=== PATIENT | female | born 1990 | race Caucasian/White ===

== ENCOUNTER 2016-08-30 17:42 | Emergency (ER) | payer BC ==
[2016-08-30 18:53] VITALS: BP 131/73
--- NOTE | 2016-08-30 19:16 | UC ---
Respiratory Complaint HPI - HPI Summary HPI Summary: 25 yo female with cough x 10 days no f/c non productice no CP or SOB - History of Current Complaint Chief Complaint: UCGeneralIllness Stated Complaint: COUGH,SORE THROAT Time Seen by Provider: 08/30/16 19:07 Hx Obtained From: Patient Hx Last Menstrual Period: 08/04/16 Onset/Duration: Gradual Onset, Lasting Weeks Timing: Constant Severity Initially: Mild Severity Currently: Moderate Pain Intensity: 2 Pain Scale Used: 0-10 Numeric Character: Cough: Nonproductive Aggravating Factors: Deep Breaths Alleviating Factors: Nothing Associated Signs And Symptoms: Positive: Nasal Congestion - Allergies/Home Medications Allergies/Adverse Reactions: Allergies Allergy/AdvReac Type Severity Reaction Status Date / Time Sulfa Drugs Allergy Unknown See Comment Verified 08/30/16 18:53 PMH/Surg Hx/FS Hx/Imm Hx Previously Healthy: Yes Endocrine History Of: Denies: Diabetes Cardiovascular History Of: Reports: 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 URETER REPAIR, TONSILS AND ADENOIDS, ear tubes - Family History Known Family History: Positive: Hypertension - Social History Alcohol Use: Occasionally Substance Use Type: None Smoking Status (MU): Never Smoked Tobacco - Immunization History Most Recent Influenza Vaccination: Not the season Review of Systems Constitutional: Negative Skin: Negative Eyes: Negative ENT: Negative Respiratory: Cough Cardiovascular: Negative Gastrointestinal: Negative Genitourinary: Negative Motor: Negative Neurovascular: Negative Musculoskeletal: Negative Neurological: Negative Psychological: Negative All Other Systems Reviewed And Are Negative: Yes Physical Exam Triage Information Reviewed: Yes Appearance: Well-Appearing, No Pain Distress, Well-Nourished, Obese Vital Signs: Initial Vital Signs Temp 98.2 F 08/30/16 18:49 Pulse 96 08/30/16 18:49 Resp 16 08/30/16 18:49 BP 131/73 08/30/16 18:49 Pulse Ox 100 08/30/16 18:49 Vital Signs Reviewed: Yes Eyes: Positive: Conjunctiva Clear ENT: Positive: Hearing grossly normal, Pharynx normal, Nasal congestion, TMs normal. Negative: Nasal drainage, Tonsillar exudate, Trismus, Muffled/hoarse voice Dental: Negative: Dental Fracture @, Abscess @ Neck: Positive: Supple, Nontender Respiratory: Positive: Normal breath sounds, No respiratory distress, No accessory muscle use. Negative: Respiratory distress, Decreased breath sounds Cardiovascular: Positive: RRR, No Murmur. Negative: Tachycardia, Bradycardia Musculoskeletal: Positive: ROM Intact, No Edema Neurological: Positive: Alert Psychological Exam: Normal Skin Exam: Normal UC Diagnostic Evaluation - Laboratory O2 Sat by Pulse Oximetry: 100 - normal/not hypoxic Respiratory Course/Dx - Differential Dx/Diagnosis Provider Diagnoses: acute bronchitis Discharge - Discharge Plan Condition: Stable Disposition: HOME Prescriptions: Amoxicillin (*) 875 mg PO BID #20 tab Patient Education Materials: Acute Bronchitis (ED) Referrals: Ad Brown MD [Primary Care Provider] - 3 Days Additional Instructions: recheck in 3-6 days if not better recheck sooner for new or worsening symptoms
== END 2016-08-30 19:30 | disposition home or self-care (01) ==
LOC: UCCORT 17:42
DX: J20.9 Acute bronchitis, unspecified (principal); Z88.2 Allergy status to sulfonamides
CPT/HCPCS: 99212; G0463

== ENCOUNTER 2017-01-31 16:49 | Emergency (ER) | payer BC ==
[2017-01-31 17:09] VITALS: BP 144/84
--- NOTE | 2017-01-31 17:22 | UC ---
Lower Extremity/Ankle HPI - HPI Summary HPI Summary: The patient comes in today for: 1. Left foot pain: Onset: ONe month ago--on and off. It has gotten worse over the last week. Palliative/provocative: Walking and pressure on the dorsum of the foot makes it worse. Quality: Sharp Region: Dorsum of the left foot. Severity: Walkin/10. Rest: 4/10 Time: Constant. Associated symptoms: She walks a lot at work. Previous treatment: She took 400 mg at 3:30 PM today. Previous medical evaluation: None. * - History of Current Complaint Chief Complaint: UCLowerExtremity Stated Complaint: LFT FOOT PAIN-1 WEEK Time Seen by Provider: 01/31/17 17:17 Hx Obtained From: Patient Hx Last Menstrual Period: 01/09/17 - Allergies/Home Medications Allergies/Adverse Reactions: Allergies Allergy/AdvReac Type Severity Reaction Status Date / Time Sulfa Drugs Allergy Unknown See Comment Verified 01/31/17 17:10 Home Medications: Home Medications Control Pill 1 tab PO DAILY 01/31/17 [History Confirmed 01/31/17] PMH/Surg Hx/FS Hx/Imm Hx Previously Healthy: No - Family planning/BCP Cardiovascular History: Hypertension GI/ History: Gastroesophageal Reflux - Surgical History Surgical History: Yes Surgery Procedure, Year, and Place: CLEF PALLET REPAIR,. URETER REPAIR, TONSILS AND ADENOIDS, ear tubes - Family History Known Family History: Positive: Cardiac Disease, Hypertension, Diabetes - Social History Occupation: Employed Full-time Alcohol Use: Occasionally Substance Use Type: None Smoking Status (MU): Never Smoked Tobacco - Immunization History Most Recent Influenza Vaccination: Not the season Review of Systems Constitutional: Negative Skin: Negative Eyes: Negative ENT: Negative Respiratory: Negative Cardiovascular: Negative Gastrointestinal: Negative Genitourinary: Negative All Other Systems Reviewed And Are Negative: Yes Physical Exam Triage Information Reviewed: Yes Appearance: Well-Appearing, No Pain Distress, Well-Nourished Vital Signs: Initial Vital Signs Temp 98.5 F 01/31/17 17:04 Pulse 98 01/31/17 17:04 Resp 14 01/31/17 17:04 BP 144/84 01/31/17 17:04 Pulse Ox 99 01/31/17 17:04 Vital Signs Reviewed: Yes Eyes: Positive: Conjunctiva Clear. Negative: Discharge ENT: Positive: Hearing grossly normal. Negative: Pharyngeal erythema, Nasal congestion, Nasal drainage, TM bulging, TM dull, TM red, Tonsillar swelling, Tonsillar exudate Dental: Negative: Gross Decay/Caries @, Dental Fracture @ Neck: Positive: Supple, Nontender, No Lymphadenopathy, Nuchal Rigidity Respiratory: Positive: Chest non-tender, Lungs clear, No respiratory distress, No accessory muscle use. Negative: Crackles, Wheezing Cardiovascular: Positive: RRR, No Murmur Abdomen Description: Positive: Nontender, No Organomegaly, Soft. Negative: Distended, Guarding Musculoskeletal: Positive: Strength Intact, ROM Intact, Other: - Left foot: Tenderness to palpation of the dorsum. No edema or erythema. No tenderness to palpation of the sole/instep. Flexion of the toes elicit pain. Neurological: Positive: Alert, Muscle Tone Normal Psychological: Positive: Age Appropriate Behavior, Consolable Skin: Negative: rashes, breakdown Lower Extremity Course/Dx - Differential Dx/Diagnosis Differential Diagnosis/HQI/PQRI: Cellulitis, Contusion, Sprain, Strain Provider Diagnoses: tenosynovitis Discharge - Discharge Plan Condition: Stable Disposition: HOME Patient Education Materials: Tendinitis (ED) Referrals: Ad Brown MD [Primary Care Provider] - 1 Week (Please see your primary care provider in about one to two weeks to see how well you are doing. If you get worse, please be seen sooner.)
== END 2017-01-31 17:48 | disposition home or self-care (01) ==
LOC: UCCORT 16:49
DX: M65.9 Synovitis and tenosynovitis, unspecified (principal); M79.672 Pain in left foot; Z88.2 Allergy status to sulfonamides; I10 Essential (primary) hypertension; K21.9 Gastro-esophageal reflux disease without esophagitis
CPT/HCPCS: 99212; G0463

== ENCOUNTER 2017-03-31 09:51 | Emergency (ER) | payer BC ==
[2017-03-31 10:09] VITALS: BP 131/74
--- NOTE | 2017-03-31 10:47 | UC ---
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 age 19 no SOB or leg edema or near syncope - History of Current Complaint Chief Complaint: UCChestPain Stated Complaint: CHEST TIGHTNESS Time Seen by Provider: 03/31/17 10:22 Hx Obtained From: Patient Hx Last Menstrual Period: 03/08/17 Onset/Duration: Sudden Onset, Lasting Minutes Timing: Intermittent Episodes Lasting: - 5-20 Initial Severity: Moderate Current Severity: Mild Pain Intensity: 0 Character: Pressure/Squeezing - when she was having it Aggravating: Nothing Alleviating: Spontaneous Resolution Associated Signs & Symptoms: Positive: Negative - Allergy/Home Medications Allergies/Adverse Reactions: Allergies Allergy/AdvReac Type Severity Reaction Status Date / Time Sulfa Drugs Allergy Unknown See Comment Verified 03/31/17 10:09 Home Medications: Home Medications Multivitamins/Minerals TAB* [Thera M Plus TAB*] 1 tab PO DAILY 03/31/17 [ History Confirmed 03/31/17] Nitrofurantoin Macrocrystals* [Macrodantin*] 0 mg PO BID 03/31/17 [History Confirmed 03/31/17] PMH/Surg Hx/FS Hx/Imm Hx Previously Healthy: Yes Cardiovascular History: Other Other Cardiovascular History: see HPI - Surgical History Surgical History: Yes Surgery Procedure, Year, and Place: CLEF PALETTE REPAIR,. URETHRA REPAIR, TONSILS AND ADENOIDS, b/lear tubes - Family History Known Family History: Positive: Cardiac Disease, Hypertension, Diabetes - Social History Alcohol Use: Occasionally Substance Use Type: None Smoking Status (MU): Never Smoked Tobacco - Immunization History Most Recent Influenza Vaccination: Not the season Review of Systems Constitutional: Negative Skin: Negative Eyes: Negative ENT: Negative Respiratory: Negative Cardiovascular: Chest Pain - resolved Gastrointestinal: Negative Genitourinary: Negative Motor: Negative Neurovascular: Negative Musculoskeletal: Negative Neurological: Negative Psychological: Negative All Other Systems Reviewed And Are Negative: Yes Physical Exam Triage Information Reviewed: Yes Appearance: Well-Appearing, No Pain Distress, Well-Nourished Vital Signs: Initial Vital Signs Temp 98.2 F 03/31/17 09:55 Pulse 123 03/31/17 09:55 Resp 24 03/31/17 09:55 BP 131/74 03/31/17 09:55 Pulse Ox 99 03/31/17 09:55 Vital Signs Reviewed: Yes Eyes: Positive: Conjunctiva Clear ENT: Positive: Hearing grossly normal. Negative: Nasal congestion, Nasal drainage, Trismus, Muffled/hoarse voice Neck: Positive: Supple, Nontender, No Lymphadenopathy Respiratory: Positive: Lungs clear, Normal breath sounds, No respiratory distress, No accessory muscle use Cardiovascular: Positive: RRR, No Murmur, Tachycardia Abdomen Description: Positive: Nontender, No Organomegaly, Soft Bowel Sounds: Positive: Present Musculoskeletal: Positive: ROM Intact, No Edema Neurological: Positive: Alert Psychological Exam: Normal Skin Exam: Normal Diagnostics - EKG Cardiac Rate: Tachycardia Cardiac Rhythm: Sinus: Normal Ectopy: None ST Segment: Normal - Assessment/Plan Course Of Treatment: I suggest a higher level of care due to sinus tachcardia and hx of myocarditis/princemetals angina. She declines EMS transfer/mom works at [employer] [facility] and will drive her. D/W Dr Alcala- accepts pt. AMA form signed for refusal of EMS - Clinical Impression Provider Diagnoses: chest pressure. sinus tachycardia Discharge - Discharge Plan Condition: Stable Disposition: TRANS HIGHER LVL OF CARE FAC Referrals: Ad Brown MD [Primary Care Provider] -
== END 2017-03-31 10:46 | disposition left against medical advice (07) ==
LOC: UCCORT 09:51
DX: R07.89 Other chest pain (principal); R00.0 Tachycardia, unspecified; Z88.2 Allergy status to sulfonamides
CPT/HCPCS: 93005; 99212; G0463

== ENCOUNTER 2022-11-03 13:49 | Observation (INO) ==
[2022-11-03] MEDS ORDERED: Iodixanol (CONTRAST) 320 MG/ML 100 ML SDV IV ONE (14:16)
[2022-11-03 14:26] LABS: ABS Eosinophils 0.2 10^3/ul (0-0.6); ABS Lymphocytes 2.2 10^3/ul (1.0-4.8); ABS Monocytes 0.3 10^3/ul (0-0.8); ABS Neutrophils 4.3 10^3/ul (1.5-7.7); Eosinophil % 2.5 %; Hematocrit 43 % (35-47); Hemoglobin 14.6 g/dL (12.0-16.0); Lymphocyte % 31.5 %; Mean Corpuscular HGB Conc 34 g/dL (31-36); Mean Corpuscular Hemoglobin 28 pg (27-31); Mean Corpuscular Volume 82 fL (80-97); Mean Platelet Volume 7.5 fL (7.4-10.4); Platelet Count 310 10^3/uL (150-450); Red Blood Count 5.25 10^6 /uL (3.70-4.87); Red Cell Distribution Width 14 % (10-15)
[2022-11-03 14:48] LABS: Activated Partial Thrombo Time 61.1 seconds (26.0-38.0)
[2022-11-03 14:59] LABS: Albumin 4.4 g/dL (3.2-5.2); Albumin/Globulin Ratio 1.7 (1-3); Calcium 9.5 mg/dL (8.6-10.3); Creatinine, Serum 0.87 mg/dL (0.51-0.95); Globulin 2.6 g/dL (2-4); Potassium 3.7 mmol/L (3.5-5.0); Total Bilirubin 0.4 mg/dL (0.2-1.0); eGFR CKD-EPI 91.3 (>60)
[2022-11-03 14:59] LABS: INR 6.19 (0.88-1.18)
[2022-11-03 15:43] LABS: Magnesium 1.7 mg/dL (1.9-2.7)
[2022-11-03 15:48] LABS: High Sensitivity Troponin 1 Hr 3 pg/mL (<15)
[2022-11-03 15:58] LABS: TSH Ultra Thyroid Stim Horm 3.3 mcIU/mL (0.34-5.60)
[2022-11-03 16:00] LABS: Free T4 0.95 ng/dL (0.61-1.12)
[2022-11-03] MEDS ORDERED: Magnesium Sulfate IV 3 GM in NS 0.9% 100 ml BAG 100 ML IVPB ONE (17:28)
[2022-11-03] MEDS ORDERED: Metoprolol Tartrate 5 mg VIAL 5 ml VIAL (1 mg/ml) IV PRN (18:41)
[2022-11-03] MEDS: Metoprolol Tartrate 5 mg VIAL 5 ml VIAL (1 mg/ml) IV PRN ×2 (21:24→23:39)
[2022-11-04] MEDS: Metoprolol Tartrate 5 mg VIAL 5 ml VIAL (1 mg/ml) IV PRN (01:45)
[2022-11-04 07:09] LABS: INR 4.39 (0.88-1.18)
[2022-11-04 07:11] LABS: ABS Eosinophils 0.1 10^3/ul (0-0.6); ABS Monocytes 0.4 10^3/ul (0-0.8); ABS Neutrophils 4.2 10^3/ul (1.5-7.7); Hematocrit 39 % (35-47); Hemoglobin 13.8 g/dL (12.0-16.0); Lymphocyte % 29.8 %; Mean Corpuscular HGB Conc 35 g/dL (31-36); Mean Corpuscular Hemoglobin 29 pg (27-31); Mean Corpuscular Volume 82 fL (80-97); Mean Platelet Volume 7.5 fL (7.4-10.4); Platelet Count 280 10^3/uL (150-450); Red Cell Distribution Width 14 % (10-15); White Blood Count 6.8 10^3/uL (3.5-10.8)
[2022-11-04 07:19] LABS: Albumin 3.8 g/dL (3.2-5.2); Albumin/Globulin Ratio 1.6 (1-3); Calcium 8.9 mg/dL (8.6-10.3); Creatinine, Serum 0.81 mg/dL (0.51-0.95); Globulin 2.4 g/dL (2-4); Potassium 4.3 mmol/L (3.5-5.0); Total Bilirubin 0.3 mg/dL (0.2-1.0); Total Protein 6.2 g/dL (6.4-8.9); eGFR CKD-EPI 99.5 (>60)
[2022-11-04] MEDS ORDERED: Sulfur Hexaflouride MICROSPHR 25 MG VIAL ONE (07:56)
[2022-11-04] MEDS ORDERED: Aspirin EC 81 mg TAB.EC (enteric coated) PO SCH (09:00)
[2022-11-04 10:37] VITALS: BP 124/76
== END 2022-11-04 14:12 | disposition home or self-care (01) ==
LOC: ED 13:49 → EDHOLD 13:49 → MEDTELE 21:57
PROVIDERS: ADMIT Internal Medicine; ATTEND Internal Medicine